=== PATIENT | male | born 1960 | race Caucasian/White ===

== ENCOUNTER 2020-02-01 04:36 | Emergency (ER) | payer OTHER, MEDICARE ==
[2020-02-01 04:44] VITALS: BP 164/100; PULSE 73; TEMP 98.6; BMI 25.0
[2020-02-01] MEDS ORDERED: ACYCLOVIR 400 MG TABLET PO ONE (04:47)
--- NOTE | 2020-02-01 04:48 | PDOC ---
History of Present Illness - General Chief Complaint: Pain Stated Complaint: "I have pain on my ribs" Time Seen by Provider: 02/01/20 04:41 History Source: Patient Exam Limitations: No Limitations - History of Present Illness Initial Comments: 02/01/20 04:42 This is a 59-year-old male who comes in complaining of a rash on his back that is wrapping around to his front. Patient says the rash his rash is itchy as well as painful. Patient denies any exposure to poison theodore or any other allergens. Allergies: as per nursing notes Past Medical History: none Social history: Lives with family. No smoking. No alcohol. No illicit drugs. Surgical history: None General: No fevers or chills, no weakness, no weight loss HEENT: No change in vision. No sore throat,. No ear pain CardioVascular: no chest discomfort. No shortness of breath Respiratory:No cough, or wheezing. Gastrointestinal: no nausea, vomiting, diarrhea or constipation, No rectal bleeding Genitourinary: No dysuria, hematuria, or frequency Musculoskeletal: No joint or muscle pain or swelling Neurologic: No headache, vertigo, dizziness or loss of consciousness Psychiatric: nor depression Skin: Itchy and painful rash of the chest and back Endocrine: no increased thirst or abnormal weight change Allergic: no skin or latex allergy All other systems reviewed and normal GENERAL: The patient is awake, alert, and fully oriented, in no acute distress. HEENT:Head is normal with no signs of trauma. Eyes: Pupils equal, round and reactive to light, Ears, and Throat are normal. Neck is supple. No Lymphad enopathy. EXTREMITIES:atraumatic, Normal range of motion, no edema. NEUROLOGICAL: Normal speech, normal gait. PSYCH: Normal mood, normal affect. SKIN: Warm, Dry, normal turgor, there is a vesicular appearing rash in a dermatomal distribution consistent with herpes zoster. Past History - Medical History Allergies/Adverse Reactions: Allergies Allergy/AdvReac Type Severity Reaction Status Date / Time meperidine HCl [From Demerol] AdvReac nausea and Verified 02/01/20 04:46 vomitting Home Medications: Ambulatory Orders Pnv/Iron,Carb/Om-3/FA/Fat 1 [Multivitamin with Minerals Cap] 1 each PO DAILY 05/23/14 Acyclovir [Zovirax -] 800 mg PO Q4H #50 tablet 02/01/20 Anemia: No Asthma: No Cancer: No Cardiac Disorders: No CVA: No COPD: No CHF: No Dementia: No Diabetes: No GI Disorders: No Disorders: No HTN: No Hypercholesterolemia: No Liver Disease: No Seizures: No Thyroid Disease: No - Surgical History Abdominal Surgery: No Appendectomy: No Cardiac Surgery: No Cholecystectomy: No Lung Surgery: No Neurologic Surgery: No Orthopedic Surgery: Yes (Bilateral Rotator Cuff Repair) - Psycho-Social/Smoking History Smoking History: Current every day smoker Have you smoked in the past 12 months: Yes Number of Cigarettes Smoked Daily: 10 'Breaking Loose' booklet given: 05/20/14 Discharge - Discharge Information Problems reviewed: Yes Clinical Impression/Diagnosis: Shingles rash Qualifiers: Herpes zoster complications: without complications Qualified Code(s): B02.9 - Zoster without complications Condition: Stable Disposition: HOME - Admission No - Additional Discharge Information Prescriptions: Acyclovir [Zovirax -] 800 mg PO Q4H #50 tablet - Follow up/Referral - Patient Discharge Instructions Additional Instructions: Take the Zovirax 1 tablet 5 times a day for 10 days. Once the rashes all resolved and healed follow-up with your primary care doctor to get the shingles vaccine. Return to the emergency department immediately with ANY new, persistent or worsening symptoms. Continue any medications as previously prescribed by your physician. You should follow up with your primary doctor as soon as possible regarding today's emergency department visit. . Please make sure your doctor reviews the results of your emergency evaluation. Thank you for coming to the Emergency Department today for your care. It was a pleasure to see you today. Please note that your evaluation is INCOMPLETE until you follow-up with your doctor. - Post Discharge Activity
== END 2020-02-01 04:56 | disposition home or self-care (01) ==
LOC: FER 04:36
DX: B02.9 Zoster without complications (principal)
CPT/HCPCS: 99283-25